=== PATIENT | female | born 1990 | race Caucasian/White ===

== ENCOUNTER 2019-08-23 14:02 | Emergency (ER) | payer OTHER ==
--- NOTE | 2019-08-23 14:28 | ED ---
Lower Extremity - HPI Summary HPI Summary: 29-year-old transgendered male to female presents to the emergency department today with a chief complaint of right 3 out of 10 calf pain 3 days. Patient states "I am pretty sure we strained both our calf muslces" on a recent long walk. Patient states since his walk her left leg has become much better however her right calf pain has become worse. Patient's pain is made worse with ambulation or weightbearing. Patient's pain is made better with rest. Patient also endorses mild swelling to the right calf. Patient denies past medical history blood clots, recent surgery, recent immobilization, recent long distance travel. Patient is otherwise well and denies fever, chest pain, shortness of breath, abdominal pain, nausea, vomiting, diarrhea, rash. - History of Current Complaint Chief Complaint: EDExtremityLower Stated Complaint: LEG INJURY PER PT Time Seen by Provider: 08/23/19 14:14 Hx Obtained From: Patient Mechanism Of Injury: Unknown Onset of Pain: Days, Prior to Arrival Severity Initially: Moderate Severity Currently: Moderate Pain Intensity: 5 Pain Scale Used: 0-10 Numeric Timing: Constant Location: Is Discrete @ - Right calf Associated Signs And Symptoms: Positive: Swelling. Negative: Redness, Bruising , Fever, Knee Pain Aggravating Factor(s): Ambulation, Movement, Weight Bearing Able to Bear Weight: Yes - Allergies/Home Medications Allergies/Adverse Reactions: Allergies Allergy/AdvReac Type Severity Reaction Status Date / Time latex Allergy Rash Verified 08/23/19 14:07 Home Medications: Home Medications Fluoxetine LIQ* 0.5 ml PO DAILY 08/23/19 [History Confirmed 08/23/19] clonazePAM TAB(*) [KlonoPIN TAB(*)] 0.2 mg PO DAILY 08/23/19 [History Confirmed 08/23/19] PMH/Surg Hx/FS Hx/Imm Hx Infectious Disease History: No Infectious Disease History: Denies: Traveled Outside the [place] in Last 30 Days Review of Systems Constitutional: Negative Eyes: Negative ENT: Negative Cardiovascular: Negative Respiratory: Negative Gastrointestinal: Negative Genitourinary: Negative Positive: Myalgia, Edema. Negative: Decreased ROM Skin: Negative Neurological/Mental Status: Negative Psychological: Normal All Other Systems Reviewed And Are Negative: Yes Physical Exam - Summary Physical Exam Summary: Patient is in no acute distress. There is mild edema noted to the right posterior calf. Positive Homans sign. Patient has pain with palpation of the right calf. Patient is able to ambulate and bear weight. Triage Information Reviewed: Yes Vital Signs On Initial Exam: Initial Vitals Temp Pulse Resp BP Pulse Ox 97.6 F 91 18 150/92 98 08/23/19 14:03 08/23/19 14:03 08/23/19 14:03 08/23/19 14:03 08/23/19 14:03 Vital Signs Reviewed: Yes Appearance: Positive: Well-Appearing, No Pain Distress, Well-Nourished Skin: Positive: Warm, Skin Color Reflects Adequate Perfusion Eyes: Positive: EOMI, BISMARK ENT: Positive: Hearing grossly normal Respiratory/Lung Sounds: Positive: Clear to Auscultation, Breath Sounds Present Cardiovascular: Positive: RRR, S1, S2 Musculoskeletal: Positive: Strength/ROM Intact, Constantino Sign Right. Negative: Constantino Sign Left Neurological: Positive: Sensory/Motor Intact, Alert, Oriented to Person Place, Time, Normal Gait, Facial Symmetry, Speech Normal Psychiatric: Positive: Affect/Mood Appropriate, Anxious AVPU Assessment: Alert Procedures - Sedation Patient Received Moderate/Deep Sedation with Procedure: No Diagnostics - Vital Signs Vital Signs Temp Pulse Resp BP Pulse Ox 08/23/19 14:03 97.6 F 91 18 150/92 98 - Laboratory Lab Statement: Any lab studies that have been ordered have been reviewed, and results considered in the medical decision making process. Lower Extremity Course/Dx - Course Course Of Treatment: Patient was evaluated in the emergency department today for right calf pain. Vitals noted and stable. Physical exam and history raised concern for possible DVT. DVT study of the right lower extremity shows no evidence of DVT. The patient's pain has improved significantly during her stay in the emergency department. Patient's pain appears to musculoskeletal. Patient is to follow-up with outpatient therapy. - Diagnoses Differential Diagnosis/HQI/PQRI: Positive: DVT, Sprain, Strain Provider Diagnoses: Right calf pain - Critical Care Time Critical Care Statement: Critical care time is provided exclusive of any time spent performing procedures. Discharge ED - Sign-Out/Discharge Documenting (check all that apply): Patient Departure - Discharge Plan Condition: Stable Disposition: HOME Patient Education Materials: Leg Pain (ED) Referrals: [facility] [Outside] - 3 Days Additional Instructions: There is no evidence of blood clot during your visit today. This is likely musculoskeletal. Please take ibuprofen 600 mg every 6 hours as needed for pain. You may also use stretches and heat as needed for alleviation of your symptoms. [facility] with [facility]-5 days for further evaluation and management. Please return to this emergency department immediately should you develop any new or worsening symptoms. - Billing Disposition and Condition Condition: STABLE Disposition: Home
[2019-08-23 15:59] VITALS: BP 97/74
== END 2019-08-23 15:58 | disposition home or self-care (01) ==
LOC: ED 14:02
DX: M79.661 Pain in right lower leg (principal); R60.9 Edema, unspecified; F64.0 Transsexualism; Z91.040 Latex allergy status
CPT/HCPCS: 99281